=== PATIENT | male | born 2005 | race Caucasian/White ===

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

== ENCOUNTER 2023-10-28 18:52 | Emergency (ER) | payer OTHER ==
[2023-10-28 19:01] VITALS: BP 134/78; PULSE 56; RESP 17; TEMP 98.2; BMI 15.8
== END 2023-10-28 20:40 | disposition home or self-care (01) ==
LOC: FER 18:52
DX: M25.562 Pain in left knee (principal); W18.39XA Other fall on same level, initial encounter; Y93.66 Activity, soccer
CPT/HCPCS: 73562-TC-LT-FY; 99283-25